=== PATIENT | female | born 1940 | race Caucasian/White ===

== ENCOUNTER 2021-01-09 12:31 | Outpatient (CLI) | payer MEDICARE | END 2021-01-09 12:32 | disposition home or self-care (01) | LOC: CSHMRI 12:31 | PROVIDERS: ATTEND Orthopaedic Surgery Hand Surgery | DX: S63.591A Other specified sprain of right wrist, initial encounter (principal); M25.431 Effusion, right wrist; M67.833 Other specified disorders of tendon, right wrist ==

== ENCOUNTER 2022-09-16 12:38 | Outpatient (CLI) | payer MEDICARE | END 2022-09-16 12:39 | disposition home or self-care (01) | LOC: CSHMRI 12:38 | PROVIDERS: ATTEND Family Medicine | DX: M54.50 Low back pain, unspecified (principal); M54.6 Pain in thoracic spine; M47.816 Spondylosis without myelopathy or radiculopathy, lumbar region; M47.814 Spondylosis without myelopathy or radiculopathy, thoracic region | CPT/HCPCS: 72146; 72148 ==

== ENCOUNTER 2023-07-02 07:34 | Outpatient (CLI) | payer MEDICARE | END 2023-07-02 07:35 | disposition home or self-care (01) | LOC: CSHMAMMO 07:34 | PROVIDERS: ATTEND Obstetrics & Gynecology | DX: N64.4 Mastodynia (principal) | CPT/HCPCS: 76642; 77065; G0279 ==

== ENCOUNTER 2024-03-09 10:30 | Outpatient (CLI) | payer MEDICARE | END 2024-03-09 10:31 | disposition home or self-care (01) | LOC: CSHMAMMO 10:30 | PROVIDERS: ATTEND Family Medicine | DX: M81.0 Age-related osteoporosis without current pathological fracture (principal); M85.851 Other specified disorders of bone density and structure, right thigh; M85.852 Other specified disorders of bone density and structure, left thigh | CPT/HCPCS: 77080 ==